=== PATIENT | male | born 1950 | race Two or more races ===

== ENCOUNTER 2023-09-06 13:47 | Emergency (ER) | payer OTHER ==
[~2023-09-06] VITALS: Ht 182.9 cm; Wt 103.2 kg
[2023-09-06] MEDS ORDERED: APIX5TAB PO (15:29)
[2023-09-06] MEDS: APIXABAN 5 MG TAB PO ONE (15:45)
[2023-09-06 15:46] VITALS: BP 130/69; PULSE 57; RESP 18; TEMP 98; O2SAT 99
== END 2023-09-06 15:53 | disposition home or self-care (01) ==
LOC: ER 13:47
DX: I82.401 Acute embolism and thrombosis of unspecified deep veins of right lower extremity (principal); M79.604 Pain in right leg

== ENCOUNTER 2024-07-24 06:32 | Day surgery (SDC) | payer OTHER ==
[~2024-07-24] VITALS: Ht 182.9 cm; Wt 98.0 kg
[2024-07-24] VITALS (12 sets, daily range): BP systolic 99–128; BP diastolic 43–52; PULSE 52–60; RESP 14–20; TEMP 97.9; O2SAT 93–98
[~2024-07-24 06:32] MED LIST: HYDR25TA5 PO; LEVO125T7 PO; POTA-228 PO
[2024-07-24] MEDS: fentaNYL CITRATE 100 MCG/2 ML VL IV STA (07:39)
[2024-07-24] MEDS: MIDAZOLAM HCL 2MG/2ML 2ml VIAL (1mg/ml) IV STA (07:39)
[2024-07-24] MEDS: IODIXANOL 320MG/ML 100ML BTL IV ONE ×2 (07:39→10:30)
[2024-07-24] MEDS ORDERED: LIDOCAINE VISCOUS 2% 15ML UD MT PRN (07:45)
--- NOTE | 2024-07-24 08:10 | ECG ---
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
[2024-07-24] MEDS: LIDOCAINE VISCOUS 2% 15ML UD ONE (08:42)
[2024-07-24] MEDS: SODIUM CHL 0.9% 50 ML ONE (08:45)
[2024-07-24] MEDS: ANGIOMAX 250 MG VIAL IV ONE (08:45)
[2024-07-24] MEDS: LIDOCAINE 2%HCL (LOCAL ANESTH.) INJ 20ML MDV ONE (08:45)
--- NOTE | 2024-07-24 09:04 | DVHOP2 ---
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 The patient was brought to the cardiac farm labor contractor in [place] state. the patient was given 15 ml of oral viscous lidocaine. the patient was placed in a left lateral decubitus position with bite block in mouth. NExt conscious sedation was administered per farm labor contractor protocol with __2 mg of versed and __50_ mcg of fentanyl. Next a TANIKA probe was advanced to the mid esophagus with ease and multiple planar images obtained. At the completion of the procedure , probe was removed and there were no immediate complications. FINDINGS: Left Ventricle: Normal LV size and function, LVEF estimated at 55% moderate concentric LVH Right Ventricle: NOrmal RV size and function Left atrium: enlarged, Right atrium: mild enlarged Left atrial appendage: no thrombus noted, Aortic valve:severely calcific valve, cannot assess leaflet status, prob trileaflet, restricted motion, significant AI noted that is eccentric as well, suspected severe , surface echo pending Mitral Valve: structurally normal, mild to moderate mitral regurg, no MS, moderate MAC Tricuspid Valve: mild tricuspid regurgitaiton, no TS Pulmonic Valve: structurally normal, no severe PII or PS Interatrial septum: negative color flow for R to L shunt Ascending aorta: no severe plaquing SANTOSH BANUELOS MD Jul 24, 2024 09:04
[2024-07-24 10:02] LABS: INR 1.25 (0.9-1.15); Partial Thromboplastin Time 29.5 SEC (24.5-34.5)
[2024-07-24] MEDS: HEPARIN IN NS 1000Units/500mL 1,500 ML ONE (10:31)
[2024-07-24] MEDS: fentaNYL CITRATE 100 MCG/2 ML VL ONE (10:45)
[2024-07-24] MEDS: MIDAZOLAM HCL 2MG/2ML 2ml VIAL (1mg/ml) ONE (10:45)
[2024-07-24] MEDS: HEPARIN SODIUM (PORCINE) 5000 UNITS/ML 1ML VIAL ONE (10:45)
[2024-07-24] MEDS: VERAPAMIL 2.5MG/ML INJ 2ML VIAL IV ONE (10:45)
--- NOTE | 2024-07-24 11:14 | DVHOP2 ---
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 PREOPERATIVE DIAGNOSES: severe POSTOP DIAGNOSIS: severe DESCRIPTION OF PROCEDURE: The patient or appropriate family signed informed consent understanding the risks, benefits and alternatives of the procedure, they wished to proceed. The patient was brought to the cardiac custodial laborer in [place]p.o. state. The patient was prepped in a sterile fashion. Sedation was used per cardiac cath protocol. I administered 2 mL of 2% lidocaine to the right wrist. With an antegrade front wall puncture. I cannulated the right radial artery and placed a 6-[place] Glidesheath slender. Next, an intra-arterial spasmolytic was administered. Next, a - 6French [place] catheter an and were used for coronary angiogram and LVEDP measurement and pressure pullback. At the completion of procedure, all guides and wires were removed, and there were no immediate complications. FINDINGS: RCA: Moderate vessel off the right sinus of Valsalva, there is no severe flow limiting stenosis in prox mid and distal RCA. it is dominant vessel with ostial PDA plaque. distal RPL has mild plaque noted LEFT MAIN: Moderate size left main, it bifurcates into LAD and circumflex. no stenosis CIRCUMFLEX: Moderate caliber vessel coming off the left main with no flow limiting stenosis. OM1 has an ostial 40% stenosis LAD: LAD is a moderate caliber vessel coming of the left main. D1 has mild ostial plaque. D2 has moderate 50% ostial plaque. mid to distal lad has mild diffuse plaquing. CONCLUSIONS: 1. mild CAD, mainly branch disease noted 2. severe -mean gradient of 55 mmhg, MARY 0.9 cm2 with AI noted on marlin Needs TAVR eval, surgical team aware SANTOSH BANUELOS MD Jul 24, 2024 11:14
== END 2024-07-24 13:25 | disposition home or self-care (01) ==
LOC: CATH 06:32
PROVIDERS: ATTEND Internal Medicine
DX: I08.3 Combined rheumatic disorders of mitral, aortic and tricuspid valves (principal); I25.10 Atherosclerotic heart disease of native coronary artery without angina pectoris; J44.9 Chronic obstructive pulmonary disease, unspecified; Z79.890 Hormone replacement therapy; Z79.899 Other long term (current) drug therapy; Z87.891 Personal history of nicotine dependence
CPT/HCPCS: 36415; 85610; 85730; 93005; 93312; 93325; 93454; C1887; J1644; J2250; J3010; Q9967; 99152; 99153